=== PATIENT | female | born 1990 | race Asian ===

== ENCOUNTER 2023-03-14 18:13 | Inpatient (IN) ==
[2023-03-14] MEDS ORDERED: Promethazine INJ(RESTRICTED) 25 MG/ML 1 ml VIAL IV PRN (18:27)
[2023-03-14] MEDS ORDERED: Lidocaine 1% VIAL 10 MG/ML 30 ML VIAL INJ PRN (18:27)
[2023-03-14] MEDS ORDERED: Buffered Lidocaine 1% SYRIN 1 ml INTRADERM ONE (18:27)
[2023-03-14] MEDS ORDERED: Lactated Ringers 1000 ml BAG 1,000 ML IV ONE (18:27)
[2023-03-14] MEDS ORDERED: Dinoprostone 10 MG VAG.SUPP VAGINAL ONE (18:40)
[2023-03-14] MEDS ORDERED: Lactated Ringers 1000 ml BAG 1,000 ML IV SCH (19:00)
[2023-03-14 20:27] LABS: ABS Eosinophils 0.1 10^3/uL (0.0-0.5); ABS Lymphocytes 1.7 10^3/uL (1.0-4.8); ABS Monocytes 0.6 10^3/uL (0.0-0.9); ABS Neutrophils 5.8 10^3/uL (1.5-7.6); ABS Nucleated RBC 0.01 10^3/ul; Hemoglobin 10.2 g/dL (11.5-14.3); Lymphocyte % 20.3 %; Mean Corpuscular Hemoglobin 27.1 pg (27-33); Mean Corpuscular Hgb Conc 33.8 g/dL (31-36); Mean Corpuscular Volume 80.3 fL (80-97); Nucleated Red Blood Cells % 0.1 %/100WBC (0.0-0.8); Platelet Count 260 10^3/uL (150-450); Red Blood Count 3.74 10^6/uL (3.63-4.92); Red Cell Distribution Width 14.1 % (12-17); White Blood Count 8.2 10^3/uL (3.8-11.8)
[2023-03-14 20:44] LABS: Urine Benzodiazepine Screen None Detected (None Detect); Urine Cannabinoids Screen None Detected (None Detect); Urine Opiates Screen None Detected (None Detect)
[2023-03-14 20:45] LABS: Albumin 3.5 g/dL (3.2-5.2); Albumin/Globulin Ratio 1.3 (1-3); Calcium 8.7 mg/dL (8.6-10.3); Creatinine, Serum 0.43 mg/dL (0.51-0.95); Globulin 2.6 g/dL (2-4); Potassium 3.2 mmol/L (3.5-5.0); Total Bilirubin 0.3 mg/dL (0.2-1.0); Total Protein 6.1 g/dL (6.4-8.9); eGFR CKD-EPI 134.1 (>60)
[2023-03-14 20:47] LABS: Urine Creatinine Concentration 46.56 mg/dL (20.00-320.00); Urine TP Creat Ratio 0.34 mg/mg
[2023-03-15] MEDS ORDERED: Oxytocin in LR 20,000 MILLI.UNIT/1,000 ML BAG IV SCH ×3 (09:00→20:35)
[2023-03-15] MEDS ORDERED: OBEPIDURAL (200 ML) 200 ML EPIDURAL ONE (11:21)
[2023-03-15] MEDS ORDERED: Lidocaine 1.5% EPI 1:200,000 30 ML SDV ONE (11:21)
[2023-03-15] MEDS ORDERED: Phenylephrine 40 mcg/mL 10mL (400mcg) SYRINGE IV PUSH PRN ×2 (12:06)
[2023-03-15] MEDS ORDERED: Lactated Ringers 1000 ml BAG 1,000 ML IV ONE (12:06)
[2023-03-15] MEDS ORDERED: Sodium Citrate/Citric Acid LIQ 15 ML UDC PO PRN (12:06)
[2023-03-15] MEDS ORDERED: Lactated Ringers 1000 ml BAG 1,000 ML IV SCH ×2 (13:00→21:00)
[2023-03-15] MEDS ORDERED: OBEPIDURAL (200 ML) 200 ML EPIDURAL SCH (13:00)
[2023-03-15 14:05] LABS: Urine Appearance Cloudy; Urine Bilirubin Negative (Negative); Urine Blood Negative (Negative); Urine Color Yellow; Urine Glucose Negative (Negative); Urine Ketones Negative (Negative); Urine Nitrite Negative (Negative); Urine Protein 1+(30 mg/dL) (Negative); Urine Specific Gravity 1.013 (1.002-1.030); Urine Urobilinogen Negative (Negative)
[2023-03-15 14:22] LABS: Urine Bacteria 1+ (Absent); Urine Red Blood Cell 3+(>10/hpf) (Absent); Urine Squamous Epithelial Cell Present (Absent); Urine White Blood Cell Trace(0-5/hpf) (Absent)
[2023-03-15] MEDS ORDERED: Ropivacaine (OR use only) 2 MG/ML 10 ML ONE (15:09)
[2023-03-15] MEDS ORDERED: ceFOXitin 2 GM IVPREMIX 2 GM/50 ML BAG IVPB ONE (18:53)
[2023-03-15] MEDS ORDERED: Oxytocin 10 UNITS/ML 1 ML VIAL ONE (19:16)
[2023-03-15] MEDS ORDERED: Morphine PF AMP (0.5MG/ML) 5 MG/10 ML AMP ONE (19:16)
[2023-03-15] MEDS ORDERED: Ondansetron 4 mg VIAL 2 MG/ML 2 ml VIAL ONE (19:16)
[2023-03-15] MEDS ORDERED: Bupivacaine-MPF SPINAL 7.5 MG/ML - 2ML AMP ONE (19:20)
[2023-03-15] MEDS ORDERED: Glycerin ADULT 2.4 gm SUPP PR PRN (20:33)
[2023-03-15] MEDS ORDERED: Dibucaine 1% OINT 28.35 GM TUBE PR PRN (20:33)
[2023-03-15] MEDS ORDERED: Witch Hazel PAD JAR TOPICAL PRN (20:33)
[2023-03-15] MEDS ORDERED: Naloxone 0.4 mg VIAL 0.4 mg/ml 1 ml VIAL IV PRN (20:39)
[2023-03-15] MEDS ORDERED: Ondansetron 4 mg VIAL 2 MG/ML 2 ml VIAL IV PRN (20:40)
[2023-03-15] MEDS ORDERED: Metoclopramide 5 MG/ML VIAL (10 mg) IV PRN (20:40)
[2023-03-15] MEDS ORDERED: Acetaminophen IV 1 GM/100ML 1,000 MG/100 ML BAG IV PRN (20:40)
[2023-03-15] MEDS ORDERED: Naloxone 0.4 mg VIAL 0.4 mg/ml 1 ml VIAL IV PUSH PRN (20:40)
[2023-03-16 09:39] LABS: ABS Lymphocytes 1.7 10^3/uL (1.0-4.8); ABS Neutrophils 10.6 10^3/uL (1.5-7.6); Eosinophil % 0.3 %; Hematocrit 27.6 % (35-45); Hemoglobin 9.2 g/dL (11.5-14.3); Lymphocyte % 12.7 %; Mean Corpuscular Hemoglobin 26.8 pg (27-33); Mean Corpuscular Hgb Conc 33.5 g/dL (31-36); Mean Platelet Volume 7.7 fL (7.5-11.2); Platelet Count 227 10^3/uL (150-450); Red Blood Count 3.44 10^6/uL (3.63-4.92); Red Cell Distribution Width 14.5 % (12-17); White Blood Count 13.4 10^3/uL (3.8-11.8)
[2023-03-17] MEDS ORDERED: Varicella Virus Vaccine Live 0.5 ML VIAL SUBCUT ONE (13:36)
[2023-03-18 08:24] VITALS: BP 117/81
== END 2023-03-18 11:55 | disposition home or self-care (01) | DRG 788 ==
LOC: MCHOBOUT 18:13 → MCHOB 18:35
PROVIDERS: ADMIT Advanced Practice Midwife; ATTEND Obstetrics & Gynecology